=== PATIENT | female | born 1940 | race Caucasian/White ===

== ENCOUNTER 2019-02-25 14:16 | Inpatient (IN) | payer MEDICARE | END 2019-02-27 13:55 | disposition home or self-care (01) | LOC: ER 14:16 → PCU 3S 02-26 09:49 → MED 3N 20:47 → PCU 3S 20:55 | DX: K92.2 Gastrointestinal hemorrhage, unspecified (principal); D62 Acute posthemorrhagic anemia; K57.90 Diverticulosis of intestine, part unspecified, without perforation or abscess without bleeding ==

== ENCOUNTER 2022-12-26 12:49 | Outpatient (CLI) | payer MEDICARE ==
[~2022-12-26 12:49] MED LIST: PANT40TA54 PO
== END 2022-12-26 23:59 | disposition home or self-care (01) ==
LOC: LAB 12:49
PROVIDERS: ATTEND Obstetrics & Gynecology
DX: R97.8 Other abnormal tumor markers (principal)
CPT/HCPCS: 36415; 82103; 82378; 83615; 86301; 86304